=== PATIENT | male | born 1965 | race Caucasian/White ===

== ENCOUNTER 2017-05-17 18:26 | Observation (INO) | payer OTHER ==
[2017-05-17] MEDS ORDERED: ASPIRIN 81 MG CHEWABLE TABLETS PO ONE (18:35)
[2017-05-17 18:41] VITALS: TEMP 97.7; BMI 41.0
--- NOTE | 2017-05-17 18:44 | PDOC ---
Rapid Medical Evaluation Time Seen by Provider: 05/17/17 18:34 Medical Evaluation: Allergies Allergy/AdvReac Type Severity Reaction Status Date / Time No Known Allergies Allergy Verified 12/29/13 20:14 05/17/17 18:34 I have performed a brief in-person evaluation of this patient. The patient presents with a chief complaint of: chest pain and shortness of breath Pertinent physical exam findings: CARDS: RRR. S1S2. No m/r/g. 2+ pedal edema PULM: conversational dyspnea. Lungs CTAB. ABD: distended. normoactive bowel sounds I have ordered the following: EKG, cardiac profile, cbc, cmp, mg, ua, CXR, ASA 81mg The patient will proceed to the ED for further evaluation. Discharge Disposition - Diagnosis Chest pain - Referrals - Patient Instructions - Post Discharge Activity
[2017-05-17 19:48] LABS: BASO % 0.4 % (0-2.0); EOS # 0.2 # (0-4.5); EOS % 1.8 % (0-4.5); LYMPH # 2.5 (8-40); MCH 29.7 pg (25.7-33.7); MCHC 34.1 g/dl (32.0-35.9); MEAN CELL VOLUME 87.2 fl (80-96); MONO # 0.9 # (3.8-10.2); NEUT # 7.4 # (42.8-82.8); NEUT % 67.1 % (42.8-82.8); PLATELET COUNT 226 K/MM3 (134-434); RDW 13.4 % (11.9-15.9)
[2017-05-17 20:07] LABS: INR 1.01 (0.82-1.09); PROTHROMBIN TIME (PATIENT) 11.4 SEC (9.98-11.88)
[2017-05-17 20:09] LABS: URINE APPEARANCE CLEAR; URINE BILIRUBIN NEGATIVE (NEGATIVE); URINE BLOOD NEGATIVE (NEGATIVE); URINE COLOR YELLOW; URINE GLUCOSE (UA) NEGATIVE (NEGATIVE); URINE KETONE NEGATIVE (NEGATIVE); URINE LEUK ESTERASE NEGATIVE (NEGATIVE); URINE NITRITE NEGATIVE (NEGATIVE); URINE PROTEIN NEGATIVE (NEGATIVE); URINE UROBILINOGEN 4.0 E.U/dl mg/dL (0.2-1.0)
[2017-05-17 20:18] LABS: ANION GAP 8 (8-16); BILIRUBIN,TOTAL 0.4 mg/dL (0.2-1.0); CALCIUM 8.6 mg/dL (8.5-10.1); CO2 26 mmol/L (21-32); CREATININE 0.8 mg/dL (0.7-1.3); GLUCOSE,RANDOM 119 mg/dL (74-106); MAGNESIUM 2.3 mg/dL (1.8-2.4); SGOT/AST 19 U/L (15-37); SGPT/ALT 30 U/L (12-78)
[2017-05-17 20:21] LABS: ALK PHOS 69 U/L (45-117); CPK 212 IU/L (39-308); TOT PROT 7.1 g/dl (6.4-8.2); TROPONIN I < 0.02 ng/ml (0.00-0.05)
[2017-05-17] MEDS ORDERED: ALBUTEROL SO4 2.5/IPRATROPIUM 0.5 INH SOL 3 ML VIAL.NEB. NEB ONE ×2 (20:22→20:31)
--- NOTE | 2017-05-17 20:25 | PDOC ---
History of Present Illness - General History Source: Patient Exam Limitations: No Limitations - History of Present Illness Initial Comments: 05/17/17 21:49 The patient is a 52-year-old male, with a significant past medical history of Hepatitis C, who presents to the ED with exertional chest pain and shortness of breath. Pt has been experiencing these symptoms for a while now and decided to come in today because his chest pain became more constant. The pt went to [facility] and an EKG was done. He was sent to the ED for further evaluation after an abnormality on the EKG was noted. 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 Pt also smokes two packs of cigarettes daily. The patient recently stopped smoking for a couple of days and his symptoms did improve, but he resumed smoking. He denies any fever, chills, nausea, vomiting, diarrhea, or abdominal pain. <Shana Griffith - Last Filed: 05/17/17 21:48> <Leigha Lainez - Last Filed: 05/18/17 01:51> - General Chief Complaint: Chest Pain Stated Complaint: CHEST PAIN Time Seen by Provider: 05/17/17 18:34 Past History <Shana Griffith - Last Filed: 05/17/17 21:48> - Past Medical History COPD: No Liver Disease: Yes (HEP C, LIVER CANCER) - Immunization History Immunization Up to Date: Yes - Suicide/Smoking/Psychosocial Hx Smoking History: Current every day smoker Have you smoked in the past 12 months: Yes Number of Cigarettes Smoked Daily: 40 Information on smoking cessation initiated: Yes 'Breaking Loose' booklet given: 05/17/17 Hx Alcohol Use: No Drug/Substance Use Hx: No Substance Use Type: None <Leigha Lainez - Last Filed: 05/18/17 01:51> - Past Medical History Allergies/Adverse Reactions: Allergies Allergy/AdvReac Type Severity Reaction Status Date / Time No Known Allergies Allergy Verified 05/17/17 18:34 Home Medications: Ambulatory Orders Naproxen Sodium [Aleve] 220 mg PO DAILY PRN 05/17/17 Review of Systems - Review of Systems Able to Perform ROS?: Yes Comments:: 05/17/17 21:50 CONSTITUTIONAL: Absent: fever, chills, diaphoresis, generalized weakness, malaise, loss of appetite HEENT: Absent: rhinorrhea, nasal congestion, throat pain, throat swelling, difficulty swallowing, mouth swelling, ear pain, eye pain, visual Changes CARDIOVASCULAR: Present: chest pain Absent: syncope, palpitations, irregular heart rate, lightheadedness, peripheral edema RESPIRATORY: Present: shortness of breath Absent: cough, orthopnea, wheezing, stridor, hemoptysis GASTROINTESTINAL: Absent: abdominal pain, abdominal distension, nausea, vomiting, diarrhea, constipation, melena, hematochezia GENITOURINARY: Absent: dysuria, frequency, urgency, hesitancy, hematuria, flank pain, genital pain MUSCULOSKELETAL: Absent: myalgia, arthralgia, joint swelling SKIN: Absent: rash, itching, pallor HEMATOLOGIC/IMMUNOLOGIC: Absent: easy bleeding, easy bruising, lymphadenopathy, frequent infections ENDOCRINE: Absent: unexplained weight gain, unexplained weight loss, heat intolerance, cold intolerance NEUROLOGIC: Absent: headache, focal weakness or paresthesias, dizziness, unsteady gait, seizure, mental status changes, bladder or bowel incontinence PSYCHIATRIC: Absent: anxiety, depression, suicidal or homicidal ideation, hallucinations. <Shana Griffith - Last Filed: 05/17/17 21:48> *Physical Exam - Vital Signs Last Vital Signs Temp Pulse Resp BP Pulse Ox 97.7 F 78 16 145/91 96 05/17/17 18:35 05/17/17 18:35 05/17/17 18:35 05/17/17 18:35 05/17/17 20:39 - Physical Exam Comments: 05/17/17 21:52 GENERAL: Well developed, well nourished. Afebrile. Awake and alert. No acute distress. Morbidly obese. NECK: Supple. Full ROM. No JVD. Carotid pulses 2+ and symmetric, without bruits. No thyromegaly. No lymphadenopathy. CARDIOVASCULAR: Regular rate and rhythm. No murmurs, rubs, or gallops. Distal pulses are 2+ and symmetric. PULMONARY: (+)Bilateral wheezing throughout, pulse ox was 89 on room air and went up to 94 with 3 liters of nasal cannula. No rales or rhonchi. ABDOMINAL: Soft. Non-tender. Non-distended. No rebound or guarding. No organomegaly. Normoactive bowel sounds. MUSCULOSKELETAL Normal range of motion at all joints. No bony deformities or tenderness. No CVA tenderness. EXTREMITIES: No cyanosis. No clubbing. No edema. No calf tenderness. SKIN: Warm and dry. Normal capillary refill. No rashes. No jaundice. NEUROLOGICAL: Alert, awake, appropriate. Strength intact PSYCHIATRIC: Cooperative. Good eye contact. Appropriate mood and affect. <Shana Griffith - Last Filed: 05/17/17 21:48> - Vital Signs Last Vital Signs Temp Pulse Resp BP Pulse Ox 97.7 F 78 16 145/91 100 05/17/17 18:35 05/17/17 18:35 05/17/17 18:35 05/17/17 18:35 05/17/17 18:35 <Leigha Lainez - Last Filed: 05/18/17 01:51> ED Treatment Course - LABORATORY CBC & Chemistry Diagram: 05/17/17 18:50 05/17/17 18:50 - ADDITIONAL ORDERS Additional order review: Laboratory Results 05/17/17 05/17/17 05/17/17 18:57 18:50 18:50 PT with INR INR Sodium 139 Potassium 4.0 Chloride 105 Carbon Dioxide 26 Anion Gap 8 BUN 15 D Creatinine 0.8 Creat Clearance w eGFR > 60 Random Glucose 119 H D Calcium 8.6 Magnesium 2.3 Total Bilirubin 0.4 D AST 19 ALT 30 D Alkaline Phosphatase 69 Creatine Kinase 212 Creatine Kinase Index 1.0 CK-MB (CK-2) 2.129 Troponin I < 0.02 B-Natriuretic Peptide 17.39 Total Protein 7.1 Albumin 4.0 Urine Color Yellow Urine Appearance Clear Urine pH 6.0 Ur Specific [place] 1.020 Urine Protein Negative Urine Glucose (UA) Negative Urine Ketones Negative Urine Blood Negative Urine Nitrite Negative Urine Bilirubin Negative Urine Urobilinogen 4.0 e.u/dl 05/17/17 18:50 PT with INR 11.40 INR 1.01 Sodium Potassium Chloride Carbon Dioxide Anion Gap BUN Creatinine Creat Clearance w eGFR Random Glucose Calcium Magnesium Total Bilirubin AST ALT Alkaline Phosphatase Creatine Kinase Creatine Kinase Index CK-MB (CK-2) Troponin I B-Natriuretic Peptide Total Protein Albumin Urine Color Urine Appearance Urine pH Ur Specific [place] Urine Protein Urine Glucose (UA) Urine Ketones Urine Blood Urine Nitrite Urine Bilirubin Urine Urobilinogen 05/17/17 18:50 RBC 5.67 H MCV 87.2 MCHC 34.1 RDW 13.4 MPV 9.0 Neutrophils % 67.1 Lymphocytes % 22.5 D Monocytes % 8.2 Eosinophils % 1.8 D Basophils % 0.4 - Medications Given in the ED: ED Medications Discontinued Medications Generic Name Dose Route Start Last Admin Trade Name Pamela PRN Reason Stop Dose Admin Albuterol/Ipratropium 1 amp 05/17/17 20:22 05/17/17 20:37 Duoneb - NEB 05/17/17 20:23 1 amp ONCE ONE Administration Aspirin 81 mg 05/17/17 18:35 05/17/17 20:37 Asa - PO 05/17/17 18:36 81 mg ONCE ONE Administration Sodium Chloride 250 ml 05/17/17 20:28 05/17/17 21:48 Normal Saline - IV 05/17/17 20:29 250 ml ONCE ONE Administration <Shana Griffith - Last Filed: 05/17/17 21:48> - LABORATORY CBC & Chemistry Diagram: 05/17/17 18:50 05/17/17 18:50 - ADDITIONAL ORDERS Additional order review: Laboratory Results 05/17/17 18:57 Urine Color Yellow Urine Appearance Clear Urine pH 6.0 Ur Specific [place] 1.020 Urine Protein Negative Urine Glucose (UA) Negative Urine Ketones Negative Urine Blood Negative Urine Nitrite Negative Urine Bilirubin Negative Urine Urobilinogen 4.0 e.u/dl 05/17/17 18:50 RBC 5.67 H MCV 87.2 MCHC 34.1 RDW 13.4 MPV 9.0 Neutrophils % 67.1 Lymphocytes % 22.5 D Monocytes % 8.2 Eosinophils % 1.8 D Basophils % 0.4 <Leigha Lainez - Last Filed: 05/18/17 01:51> Medical Decision Making - Medical Decision Making 05/17/17 20:47 Pt comes with chest pain and SOB; states taht for a few months he has had chest pain with exertion, that usually goes away when he rests. He has been feeling worse for a few days and so he quit smoking - normally smokes 2PPD - pt states that today he felt SOB and he went to [facility] in [place], and they wanted to cacll [id number] and send him to the closest hospital, instead he called his wofe out of work and came here. Pt has a normal EKG and normal vitals. Bilat BP is equal in arms. Pt has pulsox of 89% on RA and he is wheezing throughout both lung bah. Pt has no fever and no chills. He has no CP at this time and he has no tachycardia and no risks for DVT, other than his huge body habitus. 05/17/17 22:15 Labs are normal; pt is feeling better and wants to go smoke a cigarette. I will order a nicotine patch. EKG normal.CXR pending; DVT sono pending. Pt was given food and he ate dinner. 05/18/17 01:51 Patient Name: LEILA MORALES THIS IS A PRELIMINARY REPORT FROM [facility] DATE OF SERVICE: 2017-05-18 00:10:13 IMAGES: 40 EXAM: US LOWER EXTREMITY VENOUS DOPPLER HISTORY: Concern for deep vein thrombosis COMPARISON: None. FINDINGS: Ultrasound of bilateral lower extremities demonstrate normal compression flow and augmentation IMPRESSION: No deep vein thrombosis <Leigha Lainez - Last Filed: 05/18/17 01:51> *DC/Admit/Observation/Transfer - Attestations Scribe Attestion: 05/17/17 21:56 Documentation prepared by Shana Griffith, acting as medical specialist for Leigha Lainez MD. <Shana Griffith - Last Filed: 05/17/17 21:48> - Discharge Dispostion Admit: Yes <Leigha Lainez - Last Filed: 05/18/17 01:51> Diagnosis at time of Disposition: Chest pain, Angina at rest, Wheezing, Cigarette smoker two packs a day or less , Reactive airway disease, COPD (chronic obstructive pulmonary disease) - Discharge Dispostion Condition at time of disposition: Guarded
[2017-05-17] MEDS ORDERED: SODIUM CHLORIDE 0.9% 1000 ML INFUS.BAG IV ONE (20:28)
[2017-05-17] MEDS ORDERED: ASPIRIN 81 MG CHEWABLE TABLETS ONE (20:31)
[2017-05-17 22:07] LABS: URINE LEUK ESTERASE Negative (NEGATIVE)
[2017-05-18] MEDS ORDERED: NICOTINE 21 MG/24 HOURS TOPICAL PATCH TD ONE (00:32)
[2017-05-18] MEDS ORDERED: ALBUTEROL SO4 0.083% IH SOL 2.5 MG/3 ML VIAL.NEB. NEB PRN (02:10)
--- NOTE | 2017-05-18 02:14 | HP ---
CHIEF COMPLAINT:Chest pain PCP: HISTORY OF PRESENT ILLNESS: 52yo M with PMHx of Hepatitis C, who presents to the ED with exertional chest pain and shortness of breath. Pt has been experiencing these symptoms for a while now and decided to come in today because his chest pain became more constant. The pt went to [facility] and an EKG was done. He was sent to the ED for further evaluation after an abnormality on the EKG was noted. 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 Pt also smokes two packs of cigarettes daily. The patient recently stopped smoking for a couple of days and his symptoms did improve, but he resumed smoking. He denies any fever, chills, nausea, vomiting, diarrhea, or abdominal pain. ER course was notable for: (1)Troponin I negative x1 (2)EKG shows NSR with no st or t wave abdnomalites and low voltage. (3) Recent Travel: PAST MEDICAL HISTORY:Hep C PAST SURGICAL HISTORY:none Social History: Smokin pack year history Alcohol:none Drugs: none Family History: Allergies No Known Allergies Allergy (Verified 05/17/17 18:34) HOME MEDICATIONS: Home Medications Medication Instructions Recorded Naproxen Sodium [Aleve] 220 mg PO DAILY PRN 05/17/17 REVIEW OF SYSTEMS CONSTITUTIONAL: Absent: fever, chills, diaphoresis, generalized weakness, malaise, loss of appetite, weight change HEENT: Absent: rhinorrhea, nasal congestion, throat pain, throat swelling, difficulty swallowing, mouth swelling, ear pain, eye pain, visual changes CARDIOVASCULAR: Absent: chest pain, syncope, palpitations, irregular heart rate, lightheadedness , peripheral edema RESPIRATORY: Absent: cough, shortness of breath, dyspnea with exertion, orthopnea, wheezing, stridor, hemoptysis GASTROINTESTINAL: Absent: abdominal pain, abdominal distension, nausea, vomiting, diarrhea, constipation, melena, hematochezia GENITOURINARY: Absent: dysuria, frequency, urgency, hesitancy, hematuria, flank pain, genital pain MUSCULOSKELETAL: Absent: myalgia, arthralgia, joint swelling, back pain, neck pain SKIN: Absent: rash, itching, pallor HEMATOLOGIC/IMMUNOLOGIC: Absent: easy bleeding, easy bruising, lymphadenopathy, frequent infections ENDOCRINE: Absent: unexplained weight gain, unexplained weight loss, heat intolerance, cold intolerance NEUROLOGIC: Absent: headache, focal weakness or paresthesias, dizziness, unsteady gait, seizure, mental status changes, bladder or bowel incontinence PSYCHIATRIC: Absent: anxiety, depression, suicidal or homicidal ideation, hallucinations. PHYSICAL EXAMINATION Vital Signs - 24 hr 05/17/17 05/17/17 18:35 20:39 Temperature 97.7 F Pulse Rate 78 Respiratory 16 Rate Blood Pressure 145/91 O2 Sat by Pulse 100 96 Oximetry (%) GENERAL: Awake, alert, and fully oriented, in no acute distress. HEAD: Normal with no signs of trauma. EYES: Pupils equal, round and reactive to light, extraocular movements intact, sclera anicteric, conjunctiva clear. No lid lag. EARS, NOSE, THROAT: Ears normal, nares patent, oropharynx clear without exudates. Moist mucous membranes. NECK: Normal range of motion, supple without lymphadenopathy, JVD, or masses. LUNGS: Breath sounds equal, clear to auscultation bilaterally. No wheezes, and no crackles. No accessory muscle use. HEART: Regular rate and rhythm, normal S1 and S2 without murmur, rub or gallop. ABDOMEN: Soft, nontender, not distended, normoactive bowel sounds, no guarding, no rebound, no masses. No hepatomegaly or splenomegaly. MUSCULOSKELETAL: Normal range of motion at all joints. No bony deformities or tenderness. No CVA tenderness. UPPER EXTREMITIES: 2+ pulses, warm, well-perfused. No cyanosis. No clubbing. No peripheral edema. LOWER EXTREMITIES: 2+ pulses, warm, well-perfused. No calf tenderness. No peripheral edema. NEUROLOGICAL: Cranial nerves II-XII intact. Normal speech. Normal gait. PSYCHIATRIC: Cooperative. Good eye contact. Appropriate mood and affect. SKIN: Warm, dry, normal turgor, no rashes or lesions noted, normal capillary refill. Laboratory Results - last 24 hr 05/17/17 05/17/17 05/17/17 18:50 18:50 18:50 WBC 11.0 H RBC 5.67 H Hgb 16.9 Hct 49.5 H MCV 87.2 MCH 29.7 MCHC 34.1 RDW 13.4 Plt Count 226 MPV 9.0 Neutrophils % 67.1 Lymphocytes % 22.5 D Monocytes % 8.2 Eosinophils % 1.8 D Basophils % 0.4 PT with INR 11.40 INR 1.01 Sodium 139 Potassium 4.0 Chloride 105 Carbon Dioxide 26 Anion Gap 8 BUN 15 D Creatinine 0.8 Creat Clearance w eGFR > 60 Random Glucose 119 H D Calcium 8.6 Magnesium 2.3 Total Bilirubin 0.4 D AST 19 ALT 30 D Alkaline Phosphatase 69 Creatine Kinase 212 Creatine Kinase Index 1.0 CK-MB (CK-2) 2.129 Troponin I < 0.02 B-Natriuretic Peptide Total Protein 7.1 Albumin 4.0 Urine Color Urine Appearance Urine pH Ur Specific [place] Urine Protein Urine Glucose (UA) Urine Ketones Urine Blood Urine Nitrite Urine Bilirubin Urine Urobilinogen Ur Leukocyte Esterase 05/17/17 05/17/17 18:50 18:57 WBC RBC Hgb Hct MCV MCH MCHC RDW Plt Count MPV Neutrophils % Lymphocytes % Monocytes % Eosinophils % Basophils % PT with INR INR Sodium Potassium Chloride Carbon Dioxide Anion Gap BUN Creatinine Creat Clearance w eGFR Random Glucose Calcium Magnesium Total Bilirubin AST ALT Alkaline Phosphatase Creatine Kinase Creatine Kinase Index CK-MB (CK-2) Troponin I B-Natriuretic Peptide 17.39 Total Protein Albumin Urine Color Yellow Urine Appearance Clear Urine pH 6.0 Ur Specific [place] 1.020 Urine Protein Negative Urine Glucose (UA) Negative Urine Ketones Negative Urine Blood Negative Urine Nitrite Negative Urine Bilirubin Negative Urine Urobilinogen 4.0 e.u/dl Ur Leukocyte Esterase Negative ASSESSMENT/PLAN: 52 YO M with significant smoking history placed on observation for chest pain r/ o. Problem List - Problem (1) Chest pain Assessment/Plan: first set of troponin negative. * Place on observation * trend trops * ASA daily * Lipid profile. * Cardiac Consult possible need for stress test. * Repeat EKG in AM Code(s): R07.9 - CHEST PAIN, UNSPECIFIED Qualifiers: Ischemic chest pain type: stable angina pectoris (2) COPD (chronic obstructive pulmonary disease) Assessment/Plan: Pulse ox reportedly dropped to 89% in ED * Albuterol PRN * SUpplemental O2 maintain SpO2 >90% * Counseled on importance of smoking cessation. (3) Cigarette smoker two packs a day or less Code(s): F17.210 - NICOTINE DEPENDENCE, CIGARETTES, UNCOMPLICATED Visit type - Emergency Visit Emergency Visit: Yes ED Registration Date: 05/18/17 Care time: The patient presented to the Emergency Department on the above date and was hospitalized for further evaluation of their emergent condition. - New Patient This patient is new to me today: Yes Date on this admission: 05/21/17 - Critical Care Critical Care patient: No
[2017-05-18 05:58] LABS: BASO # 0.1 # (0.1-1); BASO % 1.2 % (0-2.0); EOS # 0.3 # (0-4.5); EOS % 3.1 % (0-4.5); LYMPH # 2.6 (8-40); MCH 29.2 pg (25.7-33.7); MCHC 33.4 g/dl (32.0-35.9); MEAN CELL VOLUME 87.4 fl (80-96); MEAN PLT VOLUME 8.4 fl (7.5-11.1); MONO # 0.8 # (3.8-10.2); NEUT # 4.4 # (42.8-82.8); NEUT % 54.3 % (42.8-82.8); PLATELET COUNT 209 K/MM3 (134-434); RDW 13.2 % (11.9-15.9); WHITE BLOOD COUNT 8.1 K/mm3 (4.0-10.0)
[2017-05-18 06:39] LABS: CHOLESTEROL 159 mg/dL (50-200)
[2017-05-18 06:40] LABS: ALBUMIN 3.8 g/dl (3.4-5.0); ALK PHOS 67 U/L (45-117); ANION GAP 7 (8-16); BILIRUBIN,TOTAL 0.6 mg/dL (0.2-1.0); CALCIUM 8.7 mg/dL (8.5-10.1); CO2 30 mmol/L (21-32); CREATININE 0.9 mg/dL (0.7-1.3); GLUCOSE,RANDOM 145 mg/dL (74-106); SGOT/AST 17 U/L (15-37); SGPT/ALT 29 U/L (12-78); TOT PROT 6.6 g/dl (6.4-8.2)
--- NOTE | 2017-05-18 07:19 | PN ---
Teaching Attending Note Name of Resident: Dewayne Cevallos ATTENDING PHYSICIAN STATEMENT I saw and evaluated the patient. I reviewed the resident's note and discussed the case with the resident. I agree with the resident's findings and plan as documented. SUBJECTIVE: OBJECTIVE: ASSESSMENT AND PLAN: patient is admitted to observation to r/o [place] patient presented to the ED with SHAH associated with chest discomfrot, patient has not seen a doctor in years, his symptoms seem like stable angina patient needs a cardiology evaluation for stress test c/w aspirin lipid profile - patient might benefit from a statin blood pressure control - aceI/ARB weightloss encourage quitting smoking encouraged cardiology consult
[2017-05-18] MEDS ORDERED: NICOTINE 21 MG/24 HOURS TOPICAL PATCH TD SCH (10:00)
[2017-05-18] MEDS ORDERED: ASPIRIN 81 MG CHEWABLE TABLETS PO SCH (10:00)
[2017-05-18] MEDS ORDERED: ASPIRIN 81 MG CHEWABLE TABLETS ONE (10:34)
--- NOTE | 2017-05-18 12:12 | DS ---
Physical Exam: SUBJECTIVE: Patient seen and examined Patient is comfortable, no further chest pain. Patient wants to sign AMA since feeling better. OBJECTIVE: Vital Signs Temperature 97.7 F 05/17/17 18:35 Pulse Rate 72 05/18/17 10:11 Respiratory Rate 22 05/18/17 10:11 Blood Pressure 126/87 05/18/17 10:11 O2 Sat by Pulse Oximetry (%) 97 05/18/17 10:11 PHYSICAL EXAM GENERAL: The patient is awake, alert, and fully oriented, in no acute distress. HEAD: Normal with no signs of trauma. EYES: PERRL, extraocular movements intact, sclera anicteric, conjunctiva clear. ENT: Ears normal, oropharynx clear without exudates, moist mucous membranes. NECK: Trachea midline, full range of motion, supple. LUNGS: Breath sounds equal, clear to auscultation bilaterally, no wheezes, no crackles, no accessory muscle use. HEART: Regular rate and rhythm, S1, S2 without murmur, rub or gallop. ABDOMEN: Soft, nontender, nondistended, normoactive bowel sounds, no guarding, no rebound, no hepatosplenomegaly, no masses. EXTREMITIES: 2+ pulses, warm, well-perfused, 1 plus edema bl NEUROLOGICAL: Cranial nerves II through XII grossly intact. Normal speech, gait not observed. PSYCH: Normal mood, normal affect. SKIN: Warm, dry, normal turgor, no rashes or lesions noted. LABS Laboratory Results - last 24 hr 05/17/17 05/17/17 05/17/17 18:50 18:50 18:50 WBC 11.0 H RBC 5.67 H Hgb 16.9 Hct 49.5 H MCV 87.2 MCH 29.7 MCHC 34.1 RDW 13.4 Plt Count 226 MPV 9.0 Neutrophils % 67.1 Lymphocytes % 22.5 D Monocytes % 8.2 Eosinophils % 1.8 D Basophils % 0.4 PT with INR 11.40 INR 1.01 Sodium 139 Potassium 4.0 Chloride 105 Carbon Dioxide 26 Anion Gap 8 BUN 15 D Creatinine 0.8 Creat Clearance w eGFR > 60 Random Glucose 119 H D Calcium 8.6 Magnesium 2.3 Total Bilirubin 0.4 D AST 19 ALT 30 D Alkaline Phosphatase 69 Creatine Kinase 212 Creatine Kinase Index 1.0 CK-MB (CK-2) 2.129 Troponin I < 0.02 B-Natriuretic Peptide Total Protein 7.1 Albumin 4.0 Triglycerides Cholesterol Total LDL Cholesterol HDL Cholesterol Urine Color Urine Appearance Urine pH Ur Specific [place] Urine Protein Urine Glucose (UA) Urine Ketones Urine Blood Urine Nitrite Urine Bilirubin Urine Urobilinogen Ur Leukocyte Esterase 05/17/17 05/17/17 05/18/17 18:50 18:57 02:05 WBC RBC Hgb Hct MCV MCH MCHC RDW Plt Count MPV Neutrophils % Lymphocytes % Monocytes % Eosinophils % Basophils % PT with INR INR Sodium Potassium Chloride Carbon Dioxide Anion Gap BUN Creatinine Creat Clearance w eGFR Random Glucose Calcium Magnesium Total Bilirubin AST ALT Alkaline Phosphatase Creatine Kinase Creatine Kinase Index CK-MB (CK-2) Troponin I < 0.02 B-Natriuretic Peptide 17.39 Total Protein Albumin Triglycerides Cholesterol Total LDL Cholesterol HDL Cholesterol Urine Color Yellow Urine Appearance Clear Urine pH 6.0 Ur Specific [place] 1.020 Urine Protein Negative Urine Glucose (UA) Negative Urine Ketones Negative Urine Blood Negative Urine Nitrite Negative Urine Bilirubin Negative Urine Urobilinogen 4.0 e.u/dl Ur Leukocyte Esterase Negative 05/18/17 05/18/17 05/18/17 05:35 05:35 05:35 WBC 8.1 RBC 5.68 H Hgb 16.6 Hct 49.6 H MCV 87.4 MCH 29.2 MCHC 33.4 RDW 13.2 Plt Count 209 MPV 8.4 Neutrophils % 54.3 Lymphocytes % 31.9 D Monocytes % 9.5 Eosinophils % 3.1 Basophils % 1.2 PT with INR INR Sodium 140 Potassium 4.3 Chloride 103 Carbon Dioxide 30 Anion Gap 7 L BUN 15 Creatinine 0.9 Creat Clearance w eGFR > 60 Random Glucose 145 H D Calcium 8.7 Magnesium Total Bilirubin 0.6 D AST 17 ALT 29 Alkaline Phosphatase 67 Creatine Kinase Creatine Kinase Index CK-MB (CK-2) Troponin I B-Natriuretic Peptide Total Protein 6.6 Albumin 3.8 Triglycerides 258 H Cholesterol 159 Total LDL Cholesterol 100 HDL Cholesterol 31 L Urine Color Urine Appearance Urine pH Ur Specific [place] Urine Protein Urine Glucose (UA) Urine Ketones Urine Blood Urine Nitrite Urine Bilirubin Urine Urobilinogen Ur Leukocyte Esterase 05/18/17 06:00 WBC RBC Hgb Hct MCV MCH MCHC RDW Plt Count MPV Neutrophils % Lymphocytes % Monocytes % Eosinophils % Basophils % PT with INR INR Sodium Potassium Chloride Carbon Dioxide Anion Gap BUN Creatinine Creat Clearance w eGFR Random Glucose Calcium Magnesium Total Bilirubin AST ALT Alkaline Phosphatase Creatine Kinase Creatine Kinase Index CK-MB (CK-2) Troponin I < 0.02 B-Natriuretic Peptide Total Protein Albumin Triglycerides Cholesterol Total LDL Cholesterol HDL Cholesterol Urine Color Urine Appearance Urine pH Ur Specific [place] Urine Protein Urine Glucose (UA) Urine Ketones Urine Blood Urine Nitrite Urine Bilirubin Urine Urobilinogen Ur Leukocyte Esterase HOSPITAL COURSE: Date of Admission:05/18/17 Date of Discharge: 05/18/[address] on observation to r/o [place] patient presented to the ED with SHAH associated with chest pain , patient is a 2 pack smoker , patient has not seen a doctor in years. # Acute chest pain r/o DC, CEx 3 sets are negative, patient has so many risk factors, smoker 2 pack per day , obesity with BMI of 41, elevated triglycerides and low HDL, patient wanted to sign against medical advice since feeling better , stated that he will see his bankman and does not need to see our bankman in the hospital. Patient needs echo and stress test to reevaluate further. # High triglecerdemia suggested statin and fis oil to follow with PMD and his bankman # SMOKING DEPEDNDENCY : SUGGested to quit smoking #oBESITY : RECOMMENDED weight loss cardiology consult ,stress test and echo Patient was explained the risk of signing against medical advice: Heart attack, Myocardial infarction , coma and . Minutes to complete discharge: 35 Discharge Summary Reason For Visit: CHEST PAIN Condition: Guarded - Instructions Disposition: AGAINST MEDICAL ADVICE - Home Medications Comprehensive Discharge Medication List: Ambulatory Orders Naproxen Sodium [Aleve] 220 mg PO DAILY PRN 05/17/17 This patient is new to me today: Yes Date on this admission: 05/18/17 Emergency Visit: Yes ED Registration Date: 05/18/17 Care time: The patient presented to the Emergency Department on the above date and was hospitalized for further evaluation of their emergent condition. Critical Care patient: No - Discharge Referral Referred to [facility] No
--- NOTE | 2017-05-18 13:15 | CON.CARD ---
Consult Consult Specialty:: Cardiology Referred by:: Hospitalist Medicine Reason for Consultation:: Exertional dyspnea and chest tightness - History of Present Illness Chief Complaint: Exertional dyspnea and chest tightness last several months History of Present Illness: The patient is a 52-year-old male, with a significant past medical history of Hepatitis C, smoker presented to the ED with symptoms of exertional chest pain and shortness of breath climbing inclines over last several months of a stable pattern. He denies associated symptoms of near or true syncope, palpitations, orthopnea, PND or worsening LE edema. - History Source History Provided By: Patient Limitations to Obtaining History: No Limitations - Alcohol/Substance Use Hx Alcohol Use: No - Smoking History Smoking history: Current every day smoker Have you smoked in the past 12 months: Yes Aproximately how many cigarettes per day: 40 Home Medications - Allergies Allergies/Adverse Reactions: Allergies Allergy/AdvReac Type Severity Reaction Status Date / Time No Known Allergies Allergy Verified 05/17/17 18:34 - Home Medications Home Medications: Ambulatory Orders Naproxen Sodium [Aleve] 220 mg PO DAILY PRN 05/17/17 Review of Systems - Review of Systems Cardiovascular: reports: Chest Pain Respiratory: reports: SOB on Exertion Vital Signs: Vital Signs Temperature 97.7 F 05/17/17 18:35 Pulse Rate 72 05/18/17 10:11 Respiratory Rate 22 05/18/17 10:11 Blood Pressure 126/87 05/18/17 10:11 O2 Sat by Pulse Oximetry (%) 97 05/18/17 10:11 Constitutional: Yes: No Distress, Calm Neck: Yes: Supple Respiratory: Yes: Regular, CTA Bilaterally Gastrointestinal: Yes: Normal Bowel Sounds, Soft Cardiovascular: Yes: Regular Rate and Rhythm JVD: No Carotid Bruit: No Heart Sounds: Yes: S1, S2 Edema: Yes Edema: LLE: 1+, RLE: 1+ - Other Data Labs, Other Data: CBC, BMP 05/18/17 05:35 05/18/17 05:35 INR, PTT INR 1.01 (0.82-1.09) 05/17/17 18:50 Troponin, BNP 05/17/17 05/17/17 05/18/17 18:50 18:50 02:05 Troponin I < 0.02 < 0.02 B-Natriuretic Peptide 17.39 05/18/17 06:00 Troponin I < 0.02 B-Natriuretic Peptide Troponin, BNP 05/17/17 05/17/17 05/18/17 18:50 18:50 02:05 Troponin I < 0.02 < 0.02 B-Natriuretic Peptide 17.39 05/18/17 06:00 Troponin I < 0.02 B-Natriuretic Peptide NSR@[address]-T changes Imaging - Results Chest X-ray: Report Reviewed (NAD, thickened pleural, 9 mm RUL nodule) Ultrasound: Report Reviewed (No DVT) Problem List - Problems (1) Stable angina Code(s): I20.8 - OTHER FORMS OF ANGINA PECTORIS (2) Chest pain Code(s): R07.9 - CHEST PAIN, UNSPECIFIED Qualifiers: Ischemic chest pain type: stable angina pectoris (3) Cigarette smoker two packs a day or less Code(s): F17.210 - NICOTINE DEPENDENCE, CIGARETTES, UNCOMPLICATED (4) Hypertriglyceridemia Code(s): E78.1 - PURE HYPERGLYCERIDEMIA Assessment/Plan 1. Extertional chest and dyspnea c/w stable angina 2. Tobacco abuse 3. Hep C 4. Hypertriglyceridemia 5. Hiatal hernia P:1. Ruled out for SC 2. Advised on tobacco abstinence, diet modification 3. 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 Dewayne Delgado 4. Thank you for consultative opportunity
[2017-05-18 14:17] VITALS: BP 124/86; PULSE 74
--- NOTE | 2017-05-18 16:22 | EKG ---
Test Reason : Blood Pressure : / mmHG Vent. Rate : 071 BPM Atrial Rate : 071 BPM P-R Int : 148 ms QRS Dur : 084 ms QT Int : 376 ms P-R-T Axes : 029 -10 040 degrees QTc Int : 408 ms NORMAL SINUS RHYTHM LOW VOLTAGE QRS BORDERLINE ECG WHEN COMPARED WITH ECG OF 17-MAY-2017 18:43, NO SIGNIFICANT CHANGE WAS FOUND Confirmed by MYESHA ANDERSON MD ([id number]) on 05/18/2017 4:22:34 PM Referred By: Francisca ESCAMILLA Confirmed By:MYESHA ANDERSON MD
--- NOTE | 2017-05-18 16:29 | EKG ---
Test Reason : Blood Pressure : / mmHG Vent. Rate : 077 BPM Atrial Rate : 077 BPM P-R Int : 158 ms QRS Dur : 082 ms QT Int : 364 ms P-R-T Axes : 061 -03 066 degrees QTc Int : 411 ms NORMAL SINUS RHYTHM NORMAL ECG NO PREVIOUS ECGS AVAILABLE Confirmed by MYESHA ANDERSON MD ([id number]) on 05/18/2017 4:28:48 PM Referred By: Confirmed By:MYESHA ANDERSON MD
== END 2017-05-18 10:50 | disposition left against medical advice (07) ==
LOC: JER 18:26 → JERBED 05-18 00:10
PROVIDERS: ADMIT Internal Medicine; ATTEND Internal Medicine
PROC: 3E0F7GC Introduction of Other Therapeutic Substance into Respiratory Tract, Via Natural or Artificial Opening (ICD-10-PCS; principal; 2017-05-18)
DX: R07.9 Chest pain, unspecified (principal); I20.9 Angina pectoris, unspecified; R06.2 Wheezing; F17.210 Nicotine dependence, cigarettes, uncomplicated; J44.9 Chronic obstructive pulmonary disease, unspecified; J45.909 Unspecified asthma, uncomplicated; B18.2 Chronic viral hepatitis C
CPT/HCPCS: 36415; 71020-TC; 80053; 80061; 81003; 82550; 82553; 83721; 83735; 83880; 84484; 85025; 85610; 93005; 93010; 93970-TC; 99283-25; G0378